=== PATIENT | male | born 1970 | race Caucasian/White ===

== ENCOUNTER 2017-08-18 07:23 | Day surgery (SDC) | payer OTHER ==
[2017-08-18] VITALS (11 sets, daily range): BP systolic 103–123; BP diastolic 72–86; PULSE 72–92; RESP 12–17; Ht 167.6 cm; Wt 103.7 kg
[~2017-08-18] VITALS: Ht 167.6 cm; Wt 103.7 kg
[2017-08-18] MEDS ORDERED: ATOR40TA68 PO (07:49)
[2017-08-18] MEDS ORDERED: METF850T PO (07:49)
[2017-08-18] MEDS ORDERED: LISI20TA11 PO (07:50)
[2017-08-18] MEDS ORDERED: ASPI-664 PO (07:50)
[2017-08-18] MEDS ORDERED: FAMO20TA18 PO (07:50)
[2017-08-18] MEDS ORDERED: LANT3I SC (07:51)
[2017-08-18] MEDS ORDERED: NOVO3I SC (07:51)
[2017-08-18] MEDS ORDERED: FENTAnyl 50 MCG/ML VIAL ONE (08:35)
[2017-08-18] MEDS ORDERED: ROCURONIUM 50 MG INJ ONE (08:35)
[2017-08-18] MEDS ORDERED: PROPOFOL 20 ML ONE (08:35)
[2017-08-18] MEDS ORDERED: FENTAnyl 50 MCG/ML VIAL IV PRN (09:00)
[2017-08-18] MEDS ORDERED: ONDANSETRON 4 MG INJ IV PRN (09:00)
[2017-08-18] MEDS ORDERED: METOCLOPRAMIDE 10 MG INJ IV PRN (09:00)
[2017-08-18] MEDS ORDERED: CIPROFLOXACIN 400MG/D5W 200 ML ONE (09:05)
[2017-08-18] MEDS ORDERED: IOHEXOL 300MG/ML 30 ML BTL ONE (09:05)
[2017-08-18] MEDS ORDERED: MIDAZOLAM 1 MG/ML 2 ML INJ ONE (09:29)
[2017-08-18] MEDS ORDERED: PROPOFOL 200 MG INJ ONE (10:00)
--- NOTE | 2017-08-18 10:15 | OPPN ---
Date/Time of Note Date/Time of Note DATE: 08/18/17 TIME: 10:14 Proc Note GI Procedure Date 08/18/17 Indication: treatment Pre-procedure Diagnosis Biliary stone and stent Post-procedure Diagnosis 1. Removal of the stent 2. Removal of the stone Procedure Performed: ERCP Surgeon see signature line Aluminum Boat Inspector none Anesthesia Type: MAC Tourniquet Time none EBL none Transfusion required none Biopsy 1: None Grafts/Implants none Tubes/Drains none Complication(s) none Disposition: PACU Procedure Description Dictated JUAN DAVID ANG MD Aug 18, 2017 10:15
[2017-08-18] MEDS ORDERED: INDOMETHACIN 50 MG SUPP PR ONE (10:30)
--- NOTE | 2017-08-18 10:34 | GILP ---
DATE OF PROCEDURE: INDICATION: A 46-year-old male undergoing this procedure for removal of the stent and possible ston e. The risk of the procedure, related and unrelated complications, anesthetic risks, alternatives d iscussed. Informed consent was obtained. DESCRIPTION OF PROCEDURE: The patient was brought to OR room #6 sedated by MAGISTRATE ____ Scope was pas sed with much ease into esophagus and advanced further down into stomach and duodenum. Stent was id entified, which was successfully removed by snare technique. Bile duct was selectively cannulated w ith a sphincterotome. Guidewire was deep inside, cholangiogram obtained 12 mm balloon passed over t he guidewire, and when the 10 mm balloon was extracted multiple soft stones were removed. At this p oint, the patient started moving and tried to pull out the scope, so he was heavy and again sedated. Scope was repositioned, the guidewire and the balloon, everything was out. I had to do it again a nd when the balloon was inside the second time patient tried to pull out the scope and wire, so we h ad to again sedate him and scope was repositioned ____ the bile duct multiple times. Cholangiogram was obtained. No stone was left behind and finally the balloon, the wire and the scope was removed. The patient tolerated the procedure very well. IMPRESSION: 1. Successful removal of stone. 2. Successful removal of stent. 3. Good drainage established. PLAN: Monitor LFT as an outpatient. Dictated By: JUAN DAVID MUJICA/DARLINE Conf#: [id number] DID#: [id number]
--- NOTE | 2017-08-18 15:43 | RADRPT ---
PROCEDURE: Intraoperative imaging for ERCP with fluoroscopy. CLINICAL INDICATION: Right upper quadrant pain. Intraoperative. TECHNIQUE: 2 images of the right upper quadrant of the abdomen were obtained in the operating room with an image intensifier. No radiologist was in attendance. Fluoroscopy time is 3.1 seconds. COMPARISON: No prior study is available for comparison. FINDINGS: The images demonstrate the endoscope in position and contrast injected into the common bile duct. A surgical clip is present from previous cholecystectomy. The pancreatic duct was not injected tayler IMPRESSION: 1. ERCP as described above. RPTAT: QQ .Dhiraj Fairchild MD, Date Time Electronically viewed and signed by .Dhiraj Fairchild MD, on 08/18/2017 15:43 .R/
== END 2017-08-18 11:38 | disposition home or self-care (01) ==
LOC: SDS 07:23
PROVIDERS: ATTEND Internal Medicine Gastroenterology
DX: K80.20 Calculus of gallbladder without cholecystitis without obstruction (principal); E11.9 Type 2 diabetes mellitus without complications; I10 Essential (primary) hypertension; E78.5 Hyperlipidemia, unspecified; Z87.891 Personal history of nicotine dependence
CPT/HCPCS: 43264; 43275; 74330; 82962; J0744; J2250; J3010; Q9967